=== PATIENT | male | born 1995 | race African-American/Black ===

== ENCOUNTER 2017-08-01 00:46 | Emergency (ER) | payer MEDICAID ==
[~2017-08-01] VITALS: Ht 177.8 cm; Wt 122.0 kg
[~2017-08-01 00:46] MED LIST: ZITH250T PO
[2017-08-01 00:48] VITALS: BP 170/85; PULSE 90; RESP 16; TEMP 98.9; O2SAT 100
--- NOTE | 2017-08-01 01:19 | PD ---
HPI Chief Complaint: Respiratory Symptoms Time Seen by Provider: 01:18 Travel History International Travel<30 days: No Contact w/Intl Traveler<30days: No Traveled to known affect area: No History of Present Illness HPI The patient is a 22 year old male who presents to the [facility] emergency department with a history of cough and congestion that began 2 days ago. His cough is productive of yellow sputum. He reports having a sore throat. He reports having body aches. He is unsure whether he has had any fevers. He reports that his friend at the bedside was sick with a similar illness last week. She reports that she was diagnosed with a viral upper respiratory infection. I'm review of systems otherwise, the patient denies having any neck pain, chest pain, abdominal pain, vomiting, diarrhea, urinary symptoms, or neurologic symptoms. The patient reports having shortness of breath when he coughs back to back. [facility] Past Medical History Narrative Medical The patient's past medical history is significant for psoriasis, bronchitis. Immunizations Current: Yes Tetanus Vaccination: < 5 Years Influenza Vaccination: Yes Past Surgical History Narrative Surgical The patient's past surgical history is significant for none. Social History Alcohol Use: No Tobacco Use: No Substance Use: No Allergies-Medications (Allergen,Severity, Reaction): Coded Allergies: penicillin G (Unverified Allergy, Severe, 08/01/17) Reported Meds & Prescriptions Reported Meds & Active Scripts Active Zithromax Z-Porfirio (Azithromycin) 250 Mg Tab 250 Mg PO DIRECTED 500 MG (2 TABLETS) PO ON DAY 1, THEN 250 MG (1 TABLET) PO ON DAYS 2 TO 5. None Review of Systems Except as stated in HPI: all other systems reviewed are Neg General / Constitutional: No: Fever Eyes: No: Visual changes HENT: Positive: Rhinorrhea, Congestion, No: Headaches Cardiovascular: No: Chest Pain or Discomfort Respiratory: Positive: Cough, No: Shortness of Breath Gastrointestinal: No: Abdominal Pain Genitourinary: No: Dysuria Musculoskeletal: Positive: Myalgias, No: Pain Skin: No Rash Neurologic: No: Weakness, Change in Mentation, Slurred Speech Psychiatric: No: Depression Endocrine: No: Polydipsia Hematologic/Lymphatic: No: Easy Bruising Physical Exam Narrative General: The patient is a well-developed well-nourished male in no acute distress. Head and Neck exam: Head is normocephalic atraumatic. Eyes: EOMI, pupils are equal round and reactive to light. Nose: Midline septum with erythematous edematous nasal mucosa and a clear nasal discharge. Mouth: Dentition unremarkable. Moist mucus membranes. Posterior oropharynx is mildly erythematous. No tonsillar hypertrophy. Uvula midline. Airway patent. Neck: No palpable lymphadenopathy. No nuchal rigidity. No thyromegaly. Cardiovascular: Regular rate and rhythm without murmurs, gallops, or rubs. Lungs: Clear to auscultation bilaterally. No wheezes, rhonchi, or rales. Abdomen: Soft, without tenderness to palpation in all 4 quadrants of the abdomen. No guarding, rebound, or rigidity. Normal bowel sounds are audible. No tenderness on palpation of McBurney's point. Extremities: No clubbing, cyanosis, or edema. 2+ pulses in all 4 extremities. No calf tenderness on palpation. Back: No costovertebral angle tenderness to palpation. Neurologic Exam: Grossly nonfocal. Skin Exam: No rash noted. Intact skin that is warm and dry. Data Data Last Documented VS Vital Signs Date Time Temp Pulse Resp B/P (MAP) Pulse Ox O2 Delivery O2 Flow Rate FiO2 08/01/17 00:48 98.9 90 16 170/85 (113) 100 Room Air Orders Orders Influenzae A/B Antigen (08/01/17 01:45) Chest, Single Ap (08/01/17 01:45) MDM Medical Decision Making Medical Screen Exam Complete: Yes Emergency Medical Condition: Yes Medical Record Reviewed: Yes Differential Diagnosis Pneumonia, versus influenza, versus viral upper respiratory infection, versus bronchial Narrative Course During the course of the patients emergency department visit, the patients history, examination, and differential diagnosis were reviewed with the patient. The patient was placed on a site monitor with oximetry and frequent blood pressure monitoring. The patient had an initial blood pressure that was 170 systolic. The patient denies any prior history of hypertension. The patient's blood pressure was rechecked by me and was noted to be a systolic in the low 140s. An influenza antigen was sent. A chest x-ray was ordered. The patients laboratory studies were reviewed and remarkable for influenza testing is negative. Radiology studies were reviewed and remarkable for a chest x-ray that shows no acute cardiopulmonary disease. The patient's case was most consistent with a viral upper respiratory infection. The patient is instructed to push fluids and get plenty of rest. The patient is instructed to take Tylenol as needed for body aches. The patient is instructed to take the Tylenol as written on the package. The patient is instructed to take guaifenesin to break up his mucus. The patient is resting comfortably and feels better, is alert and in no distress. The patients results and examination findings were discussed with the patient. The repeat examination is unremarkable and benign. The history, exam, diagnostic testing, and current condition do not suggest any significant pathology to warrant further testing, continued ED treatment, admission, or surgical evaluation at this point. The vital signs have been stable. The patient does not have uncontrollable pain, intractable vomiting, or other significant symptoms. The patient's condition is stable and appropriate for discharge. The patient will pursue further outpatient evaluation with a primary care physician or other designated or consulting physician as indicated in the discharge instructions. The patient expressed understanding and was agreeable with this plan. Diagnosis Primary Impression: Upper respiratory infection Qualified Codes: J06.9 - Acute upper respiratory infection, unspecified; B97.89 - Other viral agents as the cause of diseases classified elsewhere Referrals: Primary Care Physician 1 week Patient Instructions: General Instructions, Upper Respiratory Infection (ED) Additional Instructions: The patient is instructed to push fluids and get plenty of rest. The patient is instructed to take Tylenol as needed for body aches. The patient is instructed to take the Tylenol as written on the package. The patient is instructed to take guaifenesin to break up his mucus. Disposition: 01 DISCHARGE HOME Condition: Stable Jenn Cortes MD Aug 01, 2017 01:19
--- NOTE | 2017-08-01 02:24 | RADRPT ---
EXAM DATE/TIME: 08/01/2017 02:01 [facility] COMPARISON: No previous studies available for comparison. INDICATIONS : Cough and fever x 2 days MEDICAL HISTORY : None. SURGICAL HISTORY : None. ENCOUNTER: Initial ACUITY: 2 days PAIN SCORE: 7/10 LOCATION: Bilateral chest FINDINGS: A single view of the chest demonstrates the lungs to be symmetrically aerated without evidence of mas s, infiltrate or effusion. The cardiomediastinal contours are unremarkable. Osseous structures are intact. CONCLUSION: Normal examination. Teodoro Oliver MD on August 01, 2017 at 2:22 Board Certified Radiologist. This report was verified electronically.
== END 2017-08-01 02:41 | disposition home or self-care (01) ==
LOC: NEPC 00:46
DX: J06.9 Acute upper respiratory infection, unspecified (principal)
CPT/HCPCS: 71010; 87804; 99284